=== PATIENT | male | born 1945 | race Caucasian/White ===

== ENCOUNTER 2021-03-17 02:50 | Emergency (ER) | payer MEDICARE, SELFPAY ==
[2021-03-17 03:09] VITALS: BP 140/88; PULSE 71; RESP 18; TEMP 37.2; O2SAT 97
[2021-03-17 03:11] LABS: Basophils Absolute Auto 0.1 K/mm3 (0.0-0.1); Basophils Percent Auto 0.6 % (0.2-1.2); Eosinophils Absolute Auto 0.1 K/mm3 (0-0.3); Eosinophils Percent Auto 1.1 % (0-4.4); Hematocrit 42.1 % (42.0-52.0); Hemoglobin 14.2 g/dL (14.0-18.0); Immature Granulocyte Absolute 0.01 K/mm3 (0.00-0.031); Immature Granulocyte Percent A 0.1 % (0-0.5); Lymphocytes Absolute Auto 1.33 K/mm3 (0.9-3.2); Lymphocytes Percent Auto 16.8 % (18.3-44.2); Mean Corpuscular HGB Conc 33.7 g/dl (32-36); Mean Corpuscular Hemoglobin 32.2 pg (26-34); Mean Corpuscular Volume 95.5 fl (80-100); Mean Platelet Volume 10.1 fl (7.4-10.4); Monocytes Absolute Auto 0.8 K/mm3 (0.1-0.6); Monocytes Percent Auto 9.6 % (2.6-8.5); Neutrophils Absolute Auto 5.7 K/mm3 (1.3-6.7); Neutrophils Percent Auto 71.8 % (45.5-73.1); Platelet Count Result 256 k/mm3 (150-375); Red Blood Count 4.41 M/mm3 (4.6-6.20); Red Cell Distribution Width 12.5 % (11.5-14.5); White Blood Count 7.9 K/mm3 (4.5-10.0)
[2021-03-17 03:20] LABS: Alanine Aminotransferase 17 U/L (4-50); Albumin Level 4.4 g/dL (3.5-5.1); Alkaline Phosphatase 70 U/L (38-126); Anion Gap 6 mmol/L (8-16); Aspartate Amino Transferase 23 U/L (17-59); Bilirubin,Total 0.5 mg/dL (0.2-1.3); Blood Urea Nitrogen 11 mg/dL (9-20); Calcium 9.3 mg/dL (8.4-10.2); Carbon Dioxide 28 mmol/L (22-30); Chloride 99 mmol/L (98-107); Estimated Glomerular Filt Rate > 60; Glucose 150 mg/dL (65-110); Lipase 135 U/L (23-300); Potassium 3.9 mmol/L (3.4-5.0); Sodium 133 mmol/L (137-145)
[2021-03-17 03:27] LABS: Add Urine Microscopic? NO; Appearance Urine Clear (Clear); Bilirubin Urine Negative (Negative); Blood Urine Negative (Negative); Color Urine Yellow (Yellow); Glucose Urine UA Negative (Negative); Ketones Urine Negative (Negative); Leukocyte Esterase Ur Negative LEU/UL (Negative); Nitrate Urine Negative (Negative); Protein Urine Negative (Negative); Specific Grav Ur 1.017 (1.001-1.035); Urobilinogen Urine Negative mg/dL (<2.0)
--- NOTE | 2021-03-17 04:05 | ED.NAVMDI ---
HPI - Nausea/Vomiting/Diarrhea General Chief complaint: Nausea/Vomiting/Diarrhea Stated complaint: Nausea, unable to keep anything down. Time Seen by Provider: 03/17/21 03:49 Source: RN notes reviewed History of Present Illness HPI Narrative: Patient presents to emergency room from home for nausea vomiting. Patient states symptoms again proximally 36 hours ago. States he has been having numerous episodes of nausea vomiting denies any diarrhea denies having abdominal pain denies any fever chills chest pain or shortness of breath. Patient states he does have recurrent issue with the symptoms he states that normally they will occur until he is able to get some antinausea medication get everything under control he says it seems to be set off when he takes his medications on an empty stomach he states symptoms normally improved with Zofran Related Data Home Medications Medication Instructions Recorded Confirmed amlodipine 10 mg PO DAILY 07/29/19 07/29/19 ramipril 10 mg PO DAILY 07/29/19 07/29/19 rosuvastatin 2.5 mg PO DAILY 07/29/19 07/29/19 tramadol 100 mg PO TID 07/29/19 07/29/19 Allergies Allergy/AdvReac Type Severity Reaction Status Date / Time Sulfa (Sulfonamide Allergy Mild SWELLED UP Verified 07/29/19 13:01 Antibiotics) sulfite Allergy Unknown Swelling Verified 07/29/19 13:01 Review of Systems Review of Systems: Gen.: Denies fevers or chills ENT: Denies congestion Respiratory: Denies shortness of breath or cough CV: Denies chest pain or palpitations GI: See HPI Musculoskeletal: Denies back pain or muscle pain Neuro: Denies numbness, tingling, weakness or focal weakness Skin: Denies rash Except as documented, all other systems reviewed and negative [facility] Past Medical History Medical History (Updated 03/17/21 @ 05:58 by Ganesh Velasquez DO) Anxiety and depression Compressed cervical disc GERD (gastroesophageal reflux disease) Gout History of fracture of clavicle History of fracture of nasal bone History of irregular heartbeat HTN (hypertension) Lumbar stenosis Mitral valve prolapse Surgical History Surgical History History of radiofrequency ablation procedure for cardiac arrhythmia Family History Family History Father Diabetes mellitus Family history of cardiovascular disease Family history of malignant neoplasm of stomach Mother Hypertension Other Alzheimer disease Social History Social History Smoking status: Never smoker Alcohol intake: current Exam Narrative: APPEARANCE: No acute distress, nontoxic, resting in bed HEENT: Normocephalic, atraumatic, OMM RESPIRATORY: No respiratory distress, clear to auscultation bilaterally with no rhonchi wheezing or rales CARDIOVASCULAR: RRR s murmur ABDOMINAL: Soft nondistended, nontender palpation, no rebound or guarding MUSCULOSKELETAl: Moves all extremities. No clubbing, cyanosis or edema. NEURO: Awake and alert. Following commands, speech normal, no focal deficits SKIN:: Warm, dry. Normal Color PSYCHIATRIC: Normal affect/mood Course Course Emergency Course: Reviewed old records Patient able to drink in ED with no emesis Discussed with patient results of workup and diagnosis. Discussed need for follow-up with primary care, proper use of medication, and reasons to return to the emergency department. Patient understands and agrees to current treatment plan Vital Signs Vital signs: Vital Signs Temperature 98.9 F 03/17/21 03:09 Pulse Rate 71 03/17/21 03:09 Respiratory Rate 18 03/17/21 03:09 Blood Pressure 140/88 03/17/21 03:09 Pulse Oximetry 97 03/17/21 03:09 Temperature 98.9 F 03/17/21 03:09 Pulse Rate 71 03/17/21 03:09 Respiratory Rate 18 03/17/21 03:09 Blood Pressure 140/88 03/17/21 03:09 Pulse Oximetry 97 03/17/21 03:09
[2021-03-17 04:15] VITALS: BP 135/87; PULSE 72; RESP 16; O2SAT 99
[2021-03-17] MEDS: SODIUM CHLORIDE 0.9% IV 1,000 ML 999 ML IV CONT (04:15)
[2021-03-17] MEDS: ONDANSETRON INJ 4 MG/2 ML VIAL IV PUSH (04:15)
--- NOTE | 2021-03-17 04:20 | PC.NURSE ---
pt refusing CT, states hes not in any pain.
[2021-03-17 04:45] VITALS: BP 143/111; PULSE 70; RESP 18; O2SAT 100
[2021-03-17 05:30] VITALS: BP 146/99; PULSE 71; RESP 16; O2SAT 100
[2021-03-17 06:00] VITALS: BP 149/85; PULSE 71; RESP 14; O2SAT 98
== END 2021-03-17 06:00 | disposition home or self-care (01) ==
PROVIDERS: Emergency Provider Emergency Medicine
DX: R11.2 Nausea with vomiting, unspecified (principal); F41.9 Anxiety disorder, unspecified; F32.9 Major depressive disorder, single episode, unspecified; K21.9 Gastro-esophageal reflux disease without esophagitis; I10 Essential (primary) hypertension
CPT/HCPCS: 36415; 80053; 81003; 83690; 85025; 96361; 96374; 99284; J2405; J7030

== ENCOUNTER 2022-07-14 12:11 | Emergency (ER) | payer MEDICARE, SELFPAY ==
[2022-07-14 12:32] VITALS: BP 111/70; PULSE 98; RESP 20; TEMP 37.1; O2SAT 97
[2022-07-14] MEDS: CYCLOBENZAPRINE HCL 10 MG TABLET PO (14:34)
--- NOTE | 2022-07-14 14:55 | ED.GENADULT ---
HPI - General Adult General Chief complaint: Back Pain/Injury Stated complaint: lower back pain Time Seen by Provider: 07/14/22 14:04 History of Present Illness HPI narrative: 77-year-old male with history of right shoulder pain presenting the emergency department for evaluation of worsening left hip pain. Patient states he is supposed to have surgical repair of his right shoulder at [facility] on August 07. He states the pain he has been sleeping on his left hip and over the course of the last month he has had worsening left hip pain. Patient states the pain is worsened when he wakes up in the morning and describes a burning sensation that radiates from his buttock down to the middle of his left thigh. Patient states he does have pain with ambulation but denies any specific numbness or weakness. Patient denies any numbness of the perineum denies any difficulty urinating or loss of bowel control. Related Data Home Medications Medication Instructions Recorded Confirmed amlodipine 10 mg tablet 10 mg PO DAILY 07/29/19 07/29/19 ramipril 10 mg capsule 10 mg PO DAILY 07/29/19 07/29/19 rosuvastatin 5 mg tablet 2.5 mg PO DAILY 07/29/19 07/29/19 tramadol 50 mg tablet 100 mg PO TID 07/29/19 07/29/19 Allergies Allergy/AdvReac Type Severity Reaction Status Date / Time Sulfa (Sulfonamide Allergy Mild SWELLED UP Verified 07/14/22 12:12 Antibiotics) sulfite Allergy Unknown Swelling Verified 07/14/22 12:12 Review of Systems Review of Systems: CONSTITUTIONAL: Denies fever, chills, or sweats. EYES: Denies visual changes, redness, or discharge. ENT: Denies rhinorrhea, congestion, sore throat, or otalgia. CARDIOVASCULAR: Denies chest pain, palpitations, or edema. RESPIRATORY: Denies cough or dyspnea. GASTROINTESTINAL: Denies abdominal pain, nausea, vomiting, or diarrhea. GENITOURINARY: Denies dysuria or hematuria. SKIN: Denies rash or itching. MUSCULOSKELETAL: See HPI NEUROLOGIC: Denies headache, numbness, or weakness. [facility] Past Medical History Medical History (Updated 07/14/22 @ 15:00 by Joe Styles MD) Anxiety and depression Compressed cervical disc GERD (gastroesophageal reflux disease) Gout History of fracture of clavicle History of fracture of nasal bone History of irregular heartbeat HTN (hypertension) Lumbar stenosis Mitral valve prolapse Surgical History Surgical History History of radiofrequency ablation procedure for cardiac arrhythmia Family History Family History Father Diabetes mellitus Family history of cardiovascular disease Family history of malignant neoplasm of stomach Mother Hypertension Other Alzheimer disease Social History Social History Smoking status: Never smoker Alcohol intake: current Exam Narrative: APPEARANCE: Well appearing, no pain, no distress, well-nourished. HEAD: normocephalic, atraumatic. EYES: PERRLA/EOMI, conjunctivae clear. NOSE: Normal no drainage NECK: Supple. No adenopathy, no masses. RESPIRATORY: Airway patent, respirations nonlabored. Clear to auscultation bilaterally, no rales, rhonchi, wheezing. CARDIOVASCULAR: Regular rate and rhythm without murmurs rubs or gallops. ABDOMINAL: Soft, nontender, nondistended, normal bowel sounds MUSCULOSKELETAL: Reproducible left buttock tenderness to palpation NEURO: Alert. Cranial nerves II through XII intact. Grossly SKIN: Warm, dry. Normal Color Course Course Emergency Course: Patient symptoms are consistent with sciatica. Less likely differential diagnosis does include spinal stenosis, cauda equina. Patient denies any specific incident of fall or injury. Skeletal injury is less likely. Patient was updated on the results of his work-up and plan for treatment at home. Patient was encouraged with close follow-up with his primary care physici
[2022-07-14 15:17] VITALS: BP 117/87; PULSE 88; RESP 20
== END 2022-07-14 15:19 | disposition home or self-care (01) ==
PROVIDERS: Emergency Provider Emergency Medicine
DX: M54.32 Sciatica, left side (principal); I10 Essential (primary) hypertension; I34.1 Nonrheumatic mitral (valve) prolapse; K21.9 Gastro-esophageal reflux disease without esophagitis; M10.9 Gout, unspecified
CPT/HCPCS: 99283; A9270

== ENCOUNTER → 2022-10-29 14:19 | Outpatient (CLI) | payer MEDICARE, SELFPAY ==
--- NOTE | ~2022-10-29 | XR_ITS ---
XR lumbar spine 6V w bending DATE: 10/29/2022 15:19 INDICATION: Back pain. TECHNIQUE: AP, lateral, coned lateral lumbosacral and bilateral oblique views COMPARISON: None FINDINGS: There is osteopenia. There is approximately 26 degrees rotatory levoscoliosis measured from T12 to L4. There is degenerative spurring of the lower thoracic spine. There is severe degenerative disc disease throughout the lumbar and lumbosacral spine. There is degenerative changes apophyseal joints. There is grade 1 anterolisthesis at L4-5. There is degenerative change at the sacroiliac joints. No erosive change or ankylosis is noted. IMPRESSION: 26 degrees rotatory levoscoliosis of the lumbar spine Severe degenerative disc disease Grade 1 anterolisthesis at L4-5 Reviewed, dictated and finalized at location [facility].
--- NOTE | ~2022-10-29 | MR_ITS ---
MRI of the lumbar spine Clinical History: Radiculopathy Technique: Axial T2-weighted images, and sagittal T1-weighted, T2-weighted, and T2 fat-sat images wer e acquired. Findings: There is no acute fracture or lumbar spine. There is mild levoscoliosis. There is probable minimal grade 1 retrolisthesis of L3 over L4. At L1-L2, there is diffuse disc bulge and moderate facet arthropathy. No rip spinal canal stenosis. There is severe right neural foraminal narrowing and mild to moderate left neural foraminal narrowin g. At L2-L3, there is partial fusion across the disc space. There is mild diffuse disc bulge and mild to moderate facet arthropathy. There is probable lateral recess stenosis bilaterally without rip cent ral canal stenosis. There is severe right neural foraminal narrowing and moderate left neural foramin al narrowing. At L2-L3, there is advanced degenerative disc narrowing with diffuse disc bulge and facet arthropathy . There is moderate to severe central canal stenosis/thecal sac compression. There is severe bilatera l neural foraminal narrowing. At L4-L5, there is disc bulge with facet arthropathy, and probable superimposed left paracentral disc extrusion. These factors contribute to severe thecal sac compression/spinal canal stenosis and sever e bilateral neural foraminal compromise. At L5-S1, there is advanced degenerative disc narrowing. There is disc bulge with facet arthropathy b ilaterally. There is severe bilateral neural foraminal narrowing. Paravertebral soft tissues are unremarkable. Impression: Severe degenerative spondylosis, as detailed above. There is multilevel moderate to severe central ca nal stenosis/thecal sac compression and multilevel severe neural foraminal narrowing. Mild levoscoliosis and probable minimal grade 1 retrolisthesis of L3 over L4. Reviewed, dictated and finalized at [facility]. Impression: Severe degenerative spondylosis, as detailed above. There is multilevel moderat e to severe central canal stenosis/thecal sac compression and multilevel severe neural foraminal narrowing. Mild levoscoliosis and probable minimal grade 1 retrolisthesis of L3 over L4.
== END ==
PROVIDERS: PCP Internal Medicine; Visit Provider Physical Medicine & Rehabilitation
DX: M51.36 Other intervertebral disc degeneration, lumbar region (principal); M47.16 Other spondylosis with myelopathy, lumbar region; M41.86 Other forms of scoliosis, lumbar region
CPT/HCPCS: 72114; 72148